=== PATIENT | female | born 1990 | race Caucasian/White ===

== ENCOUNTER 2017-12-25 17:55 | Observation (INO) | payer OTHER ==
[~2017-12-25] VITALS: Ht 160 cm; Wt 116.1 kg
[~2017-12-25 17:55] MED LIST: IBUP-974; PREN-385 PO
[2017-12-25 18:36] VITALS: BP 106/58
== END 2017-12-25 20:17 | disposition home or self-care (01) ==
LOC: MLD 17:55
PROVIDERS: ADMIT Obstetrics & Gynecology; ATTEND Obstetrics & Gynecology
DX: O26.893 Other specified pregnancy related conditions, third trimester (principal); R10.2 Pelvic and perineal pain; Z3A.37 37 weeks gestation of pregnancy
CPT/HCPCS: 76805; G0378; Q0092; 81000

== ENCOUNTER 2017-12-30 05:15 | Inpatient (IN) | payer OTHER ==
[~2017-12-30] VITALS: Ht 160 cm; Wt 117.9 kg
[~2017-12-30 05:15] MED LIST changes: -IBUP-974
[2017-12-30] MEDS ORDERED: LACTATED RINGERS 1,000 ML IV SCH (05:35)
[2017-12-30] MEDS ORDERED: CITRIC ACID/SODIUM CITRATE 30 ML UDC PO ONE (05:35)
[2017-12-30] MEDS ORDERED: OXYTOCIN 10 UNITS/ML VIAL ONE (06:00)
[2017-12-30] MEDS ORDERED: ceFAZolin 1,000 MG VIAL ONE (06:03)
[2017-12-30] MEDS ORDERED: PREN-546 PO (06:23)
[2017-12-30 06:31] LABS: HEMATOCRIT 32.3 % (36-48); MEAN CORPUSCULAR HEMOGLOBIN 32 pg (27-31); MEAN CORPUSCULAR HGB CONC 34 g/dL (33-37); MEAN CORPUSCULAR VOLUME 93.2 fL (80-94); PLATELET COUNT (AUTO) 177 K/uL (140-450); RED BLOOD CELL COUNT(AUTO) 3.46 MIL/uL (4.20-5.40); RED CELL DISTRIBUTION WIDTH 13.5 % (11.6-13.7); WHITE BLOOD COUNT (AUTO) 11.3 K/uL (4.8-10.8)
[2017-12-30 06:53] LABS: BARBITURATE, URINE NEG. ng/ml (NEG <=200); BENZODIAZEPINE, URINE NEG. ng/mL (NEG <=200); CANNABINOID, URINE POS. ng/mL (NEG <=50); COCAINE, URINE NEG. ng/mL (NEG <=300); OPIATE, URINE NEG. ng/mL (NEG <=2000); PHENCYCLIDINE SCREEN,URINE NEG. ng/mL (NEG <=25)
[2017-12-30] MEDS ORDERED: ePHEDrine 50 MG/ML VIAL IV ONE (06:53)
[2017-12-30] MEDS ORDERED: fentaNYL 0.05 MG/ML VIAL ONE (07:04)
[2017-12-30] MEDS ORDERED: MORPHINE PRES FREE 10 MG/10 ML AMP IV ONE (07:04)
[2017-12-30] MEDS ORDERED: ceFAZolin 1,000 MG VIAL IVP ONE (07:05)
[2017-12-30] MEDS ORDERED: KETOROLAC 60 MG/2 ML VIAL IM PRN (07:30)
[2017-12-30] MEDS ORDERED: NALOXONE 0.4 MG/ML VIAL IVP PRN ×3 (07:30)
[2017-12-30] MEDS ORDERED: diphenhydrAMINE 50 MG/ML VIAL IVP PRN (07:30)
[2017-12-30] MEDS ORDERED: ONDANSETRON 4 MG/2 ML VIAL IVP PRN ×2 (07:30)
[2017-12-30] MEDS ORDERED: NALBUPHINE 10 MG/ML AMP IVP PRN (07:30)
[2017-12-30 07:42] LABS: BASOPHILS % (MANUAL) 0 % (0-2); EOSINOPHILS % (MANUAL) 1 % (0-4); LYMPHOCYTES % (MANUAL) 16 % (20-46); MONOCYTES % (MANUAL) 12 % (5-12)
[2017-12-30] MEDS ORDERED: diphenhydrAMINE 50 MG/ML VIAL ONE (08:06)
[2017-12-30] MEDS ORDERED: ONDANSETRON 4 MG/2 ML VIAL ONE (08:06)
[2017-12-30] MEDS ORDERED: OXYTOCIN 20 UNITS/LR PREMIX 1,000 ML IV ONE (08:06)
[2017-12-30 08:16] LABS: APPEARANCE,URINE CLEAR (CLEAR); BILIRUBIN,URINE NEGATIVE (NEGATIVE); BLOOD, URINE NEGATIVE (NEGATIVE); COLOR,URINE YELLOW (YELLOW); LEUKOCYTE ESTERASE ,URINE TRACE (NEGATIVE); NITRITE, URINE NEGATIVE (NEGATIVE); UGLUCOSE NEGATIVE (NEGATIVE)
[2017-12-30 08:33] LABS: RBC,URINE NONE SEEN /HPF (0-5); WBC,URINE 0-5 (RARE) /HPF (0-5)
[2017-12-30] MEDS ORDERED: METHYLERGONOVINE 0.2 MG/ML AMP ONE (08:52)
[2017-12-30] MEDS ORDERED: SIMETHICONE 80 MG TAB.CHEW PO PRN (13:10)
[2017-12-30] MEDS ORDERED: OXYTOCIN 20 UNITS in LACTATED RINGERS 1,000 ML IV SCH (13:10)
[2017-12-30] MEDS ORDERED: DOCUSATE SOD/SENNA 50/8.6 MG 1 TAB PO SCH (21:00)
[2017-12-31] MEDS ORDERED: oxyCODONE/APAP 5/325 MG 1 TAB TAB PO PRN (02:00)
[2017-12-31] MEDS ORDERED: TEMAZEPAM 15 MG CAP PO PRN (02:00)
[2017-12-31 06:29] LABS: BASOPHILS % (AUTO) 0.3 % (0.0-2.0); EOSINOPHILS # (AUTO) 0.1 K/uL (0-0.4); EOSINOPHILS % (AUTO) 0.6 % (0.0-4.0); HEMATOCRIT 31.2 % (36-48); HEMOGLOBIN 10.8 g/dL (12.0-16.0); LYMPHOCYTES # (AUTO) 1.3 K/uL (2.5-16.5); LYMPHOCYTES % (AUTO) 9.6 % (20.5-51.1); MEAN CORPUSCULAR HEMOGLOBIN 32 pg (27-31); MEAN CORPUSCULAR HGB CONC 35 g/dL (33-37); MEAN CORPUSCULAR VOLUME 92.7 fL (80-94); MONOCYTES % (AUTO) 7.2 % (1.7-9.3); NEUTROPHILS # (AUTO) 11.1 K/uL (1.8-7.7); NEUTROPHILS % (AUTO) 82.3 % (42.2-75.2); PLATELET COUNT (AUTO) 150 K/uL (140-450); RED BLOOD CELL COUNT(AUTO) 3.36 MIL/uL (4.20-5.40); RED CELL DISTRIBUTION WIDTH 13.4 % (11.6-13.7); WHITE BLOOD COUNT (AUTO) 13.5 K/uL (4.8-10.8)
[2017-12-31] MEDS: HYDROcodone/APAP 5/325 MG 1 TAB TAB PO PRN ×2 (08:30→16:15)
--- NOTE | 2017-12-31 09:18 | NUR ---
PATIENT HAS BEEN SCREENED AND CATEGORIZED HIGH NUTRITION RISK. PATIENT WILL BE SEEN WITHIN 1-2 DAYS OF ADMISSION. 12/31/[address]
[2017-12-31] MEDS ORDERED: AMMONIA AROMATIC 1 INHL INH ONE (14:44)
--- NOTE | 2017-12-31 15:08 | NUR ---
12/31/17 RD INITIAL ASSESSMENT COMPLETED PLEASE REFER TO NUTRITION ASSESSMENT UNDER CARE ACTIVITY FOR ESTIMATED NUTRITIONAL NEEDS. 1. CONTINUE REGULAR DIET TOLERATED 2. PROVIDED EDUCATION REGARDING DIET DURING AND WHILE . 3. RD TO FOLLOW-UP 3-5 DAYS, MODERATE RISK MILEY KING, RD
[2018-01-01] MEDS: IBUPROFEN 800 MG TAB PO PRN ×2 (04:10→20:46)
[2018-01-01] MEDS: HYDROcodone/APAP 5/325 MG 1 TAB TAB PO PRN (12:55)
[2018-01-02] MEDS ORDERED: IBUP-1801 PO (11:28)
[2018-01-02] MEDS: IBUPROFEN 800 MG TAB PO PRN (12:33)
== END 2018-01-02 15:40 | disposition home or self-care (01) | DRG 540 ==
LOC: MLD 05:15 → MFCC 09:15
PROVIDERS: ADMIT Obstetrics & Gynecology; ATTEND Obstetrics & Gynecology
PROC: 10D00Z1 Extraction of Products of Conception, Low, Open Approach (ICD-10-PCS; principal; 2018-01-01)
PROC: 0UB70ZZ Excision of Bilateral Fallopian Tubes, Open Approach (ICD-10-PCS; 2018-01-01)
DX: O34.211 Maternal care for low transverse scar from previous cesarean delivery (principal); Z37.0 Single live birth; Z3A.38 38 weeks gestation of pregnancy
CPT/HCPCS: 36415; 80305; 81001; 85025; 86592; 86886; 86900; 86901; 88302; 90715; J0690; J1200; J1885; J2210; J2270; J2405; J2590; J3010; J7060; J7120